=== PATIENT | male | born 1975 | race Caucasian/White ===

== ENCOUNTER 2020-07-27 09:57 | Outpatient (REF) | payer OTHER, SELFPAY ==
--- NOTE | 2020-07-27 10:04 | XR_ITS ---
EXAMINATION: XR HAND, LEFT CLINICAL INFORMATION: Cellulitis of left finger. COMPARISON: None TECHNIQUE: PA, lateral, and oblique views of the left hand. FINDINGS: There is a small bony density seen at the PIP joint first digit question old versus new injury. There is mild soft tissue swelling entire digit. No dislocation or subluxation. Rest of the left hand is unremarkable. XR/XR hand LT min 3V IMPRESSION: Moderate soft tissue swelling first digit. There is a small bony density or fragment seen at the PIP joint question old fracture. If not calcium deposit from CPPD or hyperparathyroidism. Correlate with clinical history.
== END 2020-07-27 09:58 | disposition home or self-care (01) ==
LOC: HO.HMGCX 09:57
PROVIDERS: Visit Provider Family Medicine
DX: L03.012 Cellulitis of left finger (principal)
CPT/HCPCS: 73130

== ENCOUNTER → 2024-09-13 08:06 | Outpatient (AMB) ==
--- NOTE | 2024-09-13 08:11 | AM.OFFWIN_ITS ---
Intake Vital Signs 09/13/24 08:12 Height 5 ft 10 in Weight 275 lb BMI 39.5 BP 118/62 Blood Pressure Location Rt brachial Position Sitting Pulse 74 Pulse Source Pulse Oximeter Temp 97.8 F Temp Source Oral Pulse Oximetry (%) 97 Oxygen Delivery Method Room Air Intake Visit Reasons: Upper respiratory infection Allergies No Known Allergies Allergy (Verified 09/13/24 08:13) Medication List - Last Reconciled 09/13/24 by Rosalie Donohue, [facility] albuterol sulfate 90 mcg/actuation 2 puffs inhalation Q6H PRN citalopram 30 mg PO DAILY fluticasone propion-salmeterol 250-50 mcg/dose (Advair Diskus) 1 inh inhalation BID ibuprofen 800 mg PO Q8H 10 days HPI HPI Comments History of Present Illness Details The patient is a 49-year-old male presenting with cough and congestion in the context of an asthma. He reports a longstanding history of asthma and notes that he has been experiencing respiratory infections recurrently throughout his life. This current episode has persisted for a few days and presents similar symptoms to his past respiratory infections, which typically respond to amoxicillin and prednisone. 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 The patient disclosed a past history of cigarette smoking, however, he states that he has ceased smoking for several years. His asthma management currently includes the use of albuterol and a generic version of Advair (inhaler), administered twice daily, though he is uncertain of the exact dosage, suspecting it might be 250 mcg. He denies any history of medication allergies. He reported no fever or chills but acknowledged the chest as the main source of discomfort. Denies ear pain, runny nose, sore throat, chest pain. Social History - Past history of cigarette smoking; cur rently a non-smoker Physical Exam General: Awake, alert. No apparent distress Eyes: Sclera and conjunctiva clear bilaterally Nose: Nares patent, turbinates within normal limits, no sinus tenderness with palpation bilaterally Ears: Tympanic membranes intact and clear bilaterally Throat: Moist mucosa membrane, pharynx within normal limits Cardiovascular: Regular rate and rhythm Respiratory: Clear to auscultation bilaterally, dry cough, no distress Results Viral swab negative Discussion Notes I discussed with the patient the use of prednisone to manage his asthma exacerbation, specifically prescribing 50 mg once daily for five days to mitigate inflammation and protect the lungs from further complication. I advised that he should consume prednisone with food to avoid gastrointestinal disturbances and take it earlier in the day to prevent interference with sleep. We talked about the possibility of performing a nasal swab test to investigate for influenza, COVID-19, or RSV, with results expected by the end-of-day. I introduced the option of Tamiflu for influenza management, especially beneficial for asthma patients, detailing its established safety profile. I also noted the availability of Paxlovid if his symptoms were due to COVID-19, though further discussion of RSV only involved symptomatic care. In addition, I provided a prescription for a cough suppressant to assist in symptom relief, with the instruction to use it as needed and discontinue if symptoms improved. I confirmed the patient's primary pharmacy for medication dispatch and concluded by ensuring he did not require a note to excuse absence from work. Plan The patient's current issues involve an asthma exacerbation manifesting as cough and congestion. Post-examination, I determined that the primary issue is indeed an exacerbation of asthma and have initiated prednisone therapy to control inflammation. Given his symptomatic overlap with possible infectious processes, I recommended a nasal swab to rule out viral infections such as influenza, COVID-19, or RSV. Should the tests confirm influenza, commencement of Tamiflu is proposed to avert possible pneumonia. While there are no immediate indications for antibiotics based solely on history and exam, there is a plan to reconsider treatment depending on potential swab results. I reinforced the importance of his ongoing inhalation therapy and prepared a prescription for symptomatic cough management. Continued abstinence from smoking remains an integral part of his management strategy; no additional support is immediately warranted given his sustained success. Patient was informed and verbally consented to the use of an ambient scribe for clinic note documentation during this visit. Total time spent caring for the patient today was 30 minutes. This includes time spent before the visit reviewing the chart, time spent during the visit, and time spent after the visit on documentation, reviewing laboratory results, diagnostic imaging, medications, performing a medically necessary evaluation, counseling on diagnoses, care coordination, ordering appropriate tests, ordering appropriate medications, review of tests performed by other providers, reporting test results with the patient, communication with other healthcare providers. Pt called w [id number]. Physical Exam Vital Signs: Last Vital Signs Temp 97.8 F 09/13/24 08:12 Pulse 74 09/13/24 08:12 BP 118/62 09/13/24 08:12 Pulse Ox 97 09/13/24 08:12 Oxygen Delivery Method Room Air 09/13/24 08:12 BMI result Body Mass Index 39.5 Results Reviewed Results Reviewed: RUN: 09/13/24 1640 PAGE 1 [facility] [address] [place] [id number] Reel Hooker: Jun Blackwood M.D. Specimen Inquiry Name: Jeronimo Onofre Age/Sex: 49/M : 1975 Unit#: [id number] Attend Dr: Rosalie Donohue Re09/13/24 Status: REG REF Location: [facility] Disch: SPEC : [id number] BRITTANIE: 09/13/24 STATUS: COMP REQ : [id number] RECD: 09/13/[address] [facility] [address]: Rosalie Donohue COMP: 09/13/241557 ENTERED: 09/13/24 [facility] DR: ORDERED: SARS/FLU/RSV Test Result Flag Reference Influenza A PCR NEGATIVE Negative Influenza B PCR NEGATIVE Negative RSV RNA QualPCR NEGATIVE Negative SARSCOV2 RT-PCR NEGATIVE Negative All test results must be correlated with clinical findings. Negative results do not preclude SARS-CoV2, influenza A virus, influenza B virus and/or RSV infection and should not be used as the sole basis for treatment or other patient management decisions. Negative results must be combined with clinical observations, patient history, and epidemiological information. This test has not been evaluated for monitoring treatment of infection. This test has been authorized by the FDA under an E mergency Use Authorization (EUA) for use by authorized laboratories. Testing performed on the [employer] GeneXpert utilizing real-time RT-PCR. All SARS CoV2 and positive influenza A/B results are reported to [facility]. END OF REPORT Assessment & Plan Assessment & Plan (1) Asthma exacerbation: Code(s): J45.901 - Unspecified asthma with (acute) exacerbation Qualifiers: Asthma severity: mild Asthma persistence: intermittent Qualified Code(s): J45.21 - Mild intermittent asthma with (acute) exacerbation (2) Flu-like symptoms: Code(s): R68.89 - Other general symptoms and signs Plan . Orders: Orders SARS-CoV2/FLU/RSV Today R09.89 - Other specified symptoms and signs involving the circulatory and respiratory systems, R68.89 - Other general symptoms and signs Medications: New prednisone 50 mg PO DAILY 5 days 5 tabs 0RF benzonatate 100 mg PO TID 10 days PRN 30 caps 1RF cough Patient Instructions: - Begin prednisone 50 mg once daily for five days; take with food - [facility] - Consider the nasal swab test for flu, COVID-19, and RSV - Use cough medication three times daily as needed for symptom relief - Continue current use of albuterol and Advair inhalers - Monitor for symptoms such as fever, worsening cough, or difficulty breathing and seek care if they occur Coding Level of Care Code Est Pt Level 4 (75337) Diagnoses Mild intermittent asthma with exacerbation J45.21 Asthma severity: mild Asthma persistence: intermittent Flu-like symptoms R68.89
--- OUTSIDE RECORDS SUMMARY | 2024-09-13 08:12 | XMS_ITS | Clinical Summary ---
Author Organization [facility] Address [address] [place] [address] Care Team Providers Care Dynamometer Mechanic Name Role Phone Roxanne Toribio MD Primary Care Provider Allergies No known active allergies Medications Citalopram Hydrobromide 40 MG Tab 1 TABLET DAILY Activ e PredniSONE 10 MG TabIndications:As thma exacerbation, unspecified asthma severity 6 tabs for 2 days then 5 tabs for 2 days then 4 tabs for 2 days then 3 tab for 2 days then 2 tabs x 2 days then 1 tab x 2 days 42 Tab 0 5 Active ALBUTEROL SULFATE (PROAIR HFA) 108 (90 BASE) MCG/ACT Aero Soln INHALE TWO PUFFS BY MOUTH EVERY 4 HOURS NEEDED FOR COUGH, WHEEZING, OR SHORTNESS OF BREATH 8 Active PredniSONE 20 MG Tab 2 by mouth daily for 5 days 10 Tab 8 Active Active Problems No known active problems Social History Tobacco Use Types Packs/Day Years Used Date Smoking Tobacco: Former Smokeless Tobacco: Never Alcohol Use Standard Drinks/Week Comments Not Asked 0 (1 standard drink = 0.6 oz pur e alcohol) Sex and Gender Information Value Date Recorded Sex Assigned at Not on file Legal Sex Male 9:42 AM EDT Gender Identity Not on file Sexual Orientation Not on file Last Filed Vital Signs Vital Sign Reading Time Taken Comments Blood Pressure 137/83 12/29/2017 9:15 AM EDT Pulse 74 12/29/2017 9:15 AM EDT Temperature 35.8 ??C (96.5 ??F) 12/29/2017 9:15 AM ED T Respiratory Rate 18 12/29/2017 9:15 AM EDT Oxygen Saturation 96% 12/29/2017 9:15 AM EDT Inhaled Oxygen Concentration - - Weight 132 kg (290 lb) 12/11/2014 10:37 AM EDT Height 177.8 cm (5' 10 ) 12/11/2014 10:37 AM EDT Body Mass Index 41.61 12/11/2014 10:37 AM EDT Plan of Treatment Health Maintenance Due Date Last Done Comments Hepatitis C Screening 1975 DTaP/Tdap/Td (1 - Tdap) 02/08/1994 Hep B (1 of 3 - 19+ 3-dose series) 02/08/1995 COVID-19 Vaccine ( - 2023-2 5 season) 2024 Influenza (#1) 2024 Zoster (Shingrix) (1 of 2) 02/08/2026 HPV Vaccine Aged Out No longer eligi ble based on patient's age to complete this topic Hep A Aged Out No longer eligi ble based on patient's age to complete this topic Hib Aged Out No longer eligi ble based on patient's age to complete this topic Meningococcal ACWY Aged Out No longer eligible based on patient's age to complete this topic Pneumococcal Aged Out No longer eligi ble based on patient's age to complete this topic Insurance [facility] Care Teams Dynamometer Mechanic Relationship Specialty Start Date End Date Roxanne Toribio MD [address] [id number] PCP - General Internal Medicine 12/29/17
== END | disposition home or self-care (01) ==

== ENCOUNTER 2024-09-13 14:22 | Outpatient (REF) | payer OTHER, SELFPAY ==
--- OUTSIDE RECORDS SUMMARY | 2024-09-13 14:38 | XMS_ITS | Clinical Summary ---
Author Organization [facility] Address [address] [place] [address] Care Team Providers Care Transportation Solutions Manager Name Role Phone Roxanne Toribio MD Primary [...] patient's age to complete this topic Insurance [facility] Care Teams Transportation Solutions Manager Relationship Specialty Start Date End Date Roxanne Toribio MD [address] [address] PCP - General Internal Medicine 12/29/17
[2024-09-13 15:56] LABS: Influenza A PCR NEGATIVE (Negative); Influenza B PCR NEGATIVE (Negative); Resp Syncy Virus RNA Qual PCR NEGATIVE (Negative); SARS COV2 PCR INHOUSE NEGATIVE (Negative)
== END 2024-09-13 14:23 | disposition home or self-care (01) ==
LOC: HO.LNP 14:22
PROVIDERS: PCP Family Medicine; Visit Provider Nurse Practitioner Family
DX: R09.89 Other specified symptoms and signs involving the circulatory and respiratory systems (principal); R68.89 Other general symptoms and signs; J45.21 Mild intermittent asthma with (acute) exacerbation; R05.8 Other specified cough
CPT/HCPCS: 0241U